=== PATIENT | male | born 1930 | race Caucasian/White ===

== ENCOUNTER 2018-09-02 15:01 | Observation (INO) | payer MEDICARE, OTHER ==
--- NOTE | 2018-09-02 15:36 | PDOC.FPRHP ---
- History of Present Illness Chief Complaint: Hyperglycemia History of Present Illness: Mr. Burnette is a 88 year old male that presents as a transfer from [place] for elevated blood sugar Yesterday he reports that he fell while trying to close his barn door and they went to the ER to be evaluated. While in the ER it was found that his sugar was elevated to 734. He has no history of DM and has never been told he has had elevated sugars before. Now that he thinks about it he has had polydipsia and polyuria for the past few months. He does not report any syncope, just fallx1 after losing his balance. He denies CP, SOB, dysuria, or recent infection. ED Course: CBC, CMP, B-hydroxybutyrate, UA 10 units of insulin, 2 L NS - Allergies/Adverse Reactions Allergies Allergy/AdvReac Type Severity Reaction Status Date / Time No Known Allergies Allergy Verified 09/02/18 16:54 - Home Medications Medication Instructions Recorded Confirmed Type Aspirin [Aspir-Low] 81 mg PO DAILY 01/20/17 09/02/18 History Atorvastatin Calcium [Lipitor] 80 mg PO HS 01/20/17 09/02/18 History Clopidogrel Bisulfate [Plavix] 75 mg PO DAILY 01/20/17 09/02/18 History Hydrochlorothiazide 25 mg PO DAILY 01/20/17 09/02/18 History Levothyroxine Sodium 100 mcg PO DAILY 01/20/17 09/02/18 History Lisinopril 40 mg PO HS 01/20/17 09/02/18 History Potassium Chloride 1 tab PO BID 01/20/17 09/02/18 History Tamsulosin HCl [Flomax] 0.4 mg PO HS 01/20/17 09/02/18 History Amlodipine [Norvasc] 5 mg PO QPM 09/02/18 09/02/18 History Melatonin/Pyridoxine [Melatonin 5 1 each PO HS PRN 09/02/18 09/02/18 History mg Tablet] Meloxicam 15 mg PO QAM-WM 09/02/18 09/02/18 History Niacin 100 mg PO BID 09/02/18 09/02/18 History Verapamil HCl [Verapamil SR] 240 mg PO DAILY 09/02/18 09/02/18 History amLODIPine Besylate [Norvasc] 2.5 mg PO QAM 09/02/18 09/02/18 History - History PMHx:TIA, HTN, HLD, hypothyroid, BPH, anxiety PSHx: Hernia repair FHx: NC Social: Winter green skoal during waking hours, no AD - Review of Systems General: denies: fever/chills, weight/appetite/sleep changes Eyes: reports: vision changes. denies: eye pain ENT: denies: nasal congestion, rhinorrhea Respiratory: denies: cough, congestion, shortness of breath Cardiovascular: denies: chest pain, palpitation, edema, orthopnea Gastrointestinal: denies: nausea, vomiting, diarrhea, constipation, abdominal pain Genitourinary: reports: polyuria. denies: incontinence, dysuria Skin: denies: rashes, lesions Musculoskeletal: denies: pain, tenderness Neurological: denies: numbness, syncope, weakness - Vital signs BP: 144/85 HR: 72 RR: 20 Tmax: 97.7 Pox: 94% on RA Wt: 76kg - Physical Exam Constitutional: NAD, awake, alert and oriented HEENT: normocephalic and atraumatic, grossly normal vision, grossly normal hearing Neck: trachea midline Chest: no-tender to palpation Heart: RRR, normal S1/S2, no murmurs/rubs/gallops, pulses present, no edema Lungs: CTAB, no respiratory distress, good air movement Abdomen: soft, non-tender, bowel sounds present Musculoskeletal: normal structure, normal tone, ROM grossly normal Neurological: no focal deficit, CN II-XII intact Skin: no rash/lesions Heme/Lymphatic: no unusual bruising or bleeding Psychiatric: normal mood and affect FMR H&P: Results - Labs Result Diagrams: 09/02/18 17:24 Lab results: Laboratory Tests 09/02/18 09/02/18 09/02/18 12:39 12:39 13:34 WBC 6.4 Hgb 14.8 Hct 44.6 Plt Count 195 PT INR APTT Sodium 135 L Potassium 4.9 Chloride 95 L Carbon Dioxide 26 Anion Gap 19 BUN 25 Creatinine 1.51 H Estimated GFR (MDRD) 44 Glucose 736 H* POC Glucose Calcium 10.1 Total Bilirubin 1.9 H AST 27 ALT 48 Alkaline Phosphatase 134 Creatine Kinase CK-MB (CK-2) 0.9 Troponin I 0.013 Urine pH Urine Glucose (UA) Urine Ketones B-Hydroxybutyrate 09/02/18 09/02/18 09/02/18 13:34 13:34 13:34 WBC Hgb Hct Plt Count PT 13.5 INR 1.0 APTT 29.6 Sodium Potassium Chloride Carbon Dioxide Anion Gap BUN Creatinine Estimated GFR (MDRD) Glucose POC Glucose Calcium Total Bilirubin AST ALT Alkaline Phosphatase Creatine Kinase 68 CK-MB (CK-2) Troponin I Urine pH Urine Glucose (UA) Urine Ketones B-Hydroxybutyrate 1.09 H 09/02/18 09/02/18 13:34 15:22 WBC Hgb Hct Plt Count PT INR APTT Sodium Potassium Chloride Carbon Dioxide Anion Gap BUN Creatinine Estimated GFR (MDRD) Glucose POC Glucose 421 H Calcium Total Bilirubin AST ALT Alkaline Phosphatase Creatine Kinase CK-MB (CK-2) Troponin I Urine pH 7.0 Urine Glucose (UA) 500 H Urine Ketones 15 H B-Hydroxybutyrate FMR H&P: A/P - Problem List (1) Hyperglycemia due to type 2 diabetes mellitus Current Visit: Yes Status: Acute Code(s): E11.65 - TYPE 2 DIABETES MELLITUS WITH HYPERGLYCEMIA (2) KERRY (acute kidney injury) Current Visit: Yes Status: Acute Code(s): N17.9 - ACUTE KIDNEY FAILURE, UNSPECIFIED (3) Fall Current Visit: Yes Status: Acute Code(s): W19.XXXA - UNSPECIFIED FALL, INITIAL ENCOUNTER (4) Hx-TIA (transient ischemic attack) Current Visit: Yes Status: Acute Code(s): Z86.73 - PRSNL HX OF TIA (TIA), AND CEREB INFRC W/O RESID DEFICITS (5) HLD (hyperlipidemia) Current Visit: Yes Status: Acute Code(s): E78.5 - HYPERLIPIDEMIA, UNSPECIFIED (6) BPH (benign prostatic hyperplasia) Current Visit: Yes Status: Acute Code(s): N40.0 - BENIGN PROSTATIC HYPERPLASIA WITHOUT LOWER URINRY TRACT SYMP (7) Anxiety Current Visit: Yes Status: Acute Code(s): F41.9 - ANXIETY DISORDER, UNSPECIFIED (8) Hypertension Current Visit: No Status: Chronic Code(s): I10 - ESSENTIAL (PRIMARY) HYPERTENSION Qualifiers: (9) Hypothyroid Current Visit: No Status: Chronic Code(s): E03.9 - HYPOTHYROIDISM, UNSPECIFIED Qualifiers: Hypothyroidism type: other Qualified Code(s): E03.8 - Other specified hypothyroidism - Plan Hyperglycemia - s/p 10 units insulin, give 10 more - repeat BMP now, AM - LR 120ml/hr, monitor fluid status - consider metformin in AM pending kidney function - hba1c pending KERRY - no history of CKD - fluid resuscitation - AM BMP S/p fall - no concern for syncope, fall precautions TIA - continue home meds HTN - continue home meds - vitals qshift HLD - continue home meds Hypothyroid - continue home meds - recent TSH at goal BPH - continue home meds Anxiety - continue home meds Disposition/LOS: Admit to medical floor, monitor glucose and BMP, DC tomorrow FMR H&P: Upper Level - Pertinent history 88 y/o M with PMHx HTN, HLD, hypothyroidism, prior CVA presents after a ground level fall onto his left side after losing his balance. He went to the ED in [place] to get evaluated and was found to hyperglycemic. He was transferred to the ED here after getting 10 U insulin and 2L NS boluses. He endorses polydipsia , polyuria, and nocturia. He denies any signs of infection and all other ROS were negative. - Pertinent findings PE: Gen - alert, oriented, NAD CV - RRR, 3/6 systolic murmur Resp - no use of accessory muscles of respiration, CTAB Abd - protuberant, soft, NTTP, normoactive BS, no fluid wave Ext - no edema Labs: Glucose 736->421, beta-hydroxybutyrate 1.09, Cr 1.51, GFR 44, Anion gap 14 , T. 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 - Plan Date/Time: 09/02/18 [id number] IJodee MD, PGY-2, have evaluated this patient and agree with findings/ plan as outlined by international marketing intern resident. Pertinent changes/additions are listed here. 1. Hyperglycemia with new onset DM2 Patient presented with initial glucose in the 700s that improved to the 400s with 10 U insulin and 2L NS. The patient has a mildly elevated beta- hydroxybutyrate and anion gap of 14, but does not appear to be in true DKA. He was very responsive to insulin. On reviewing old labs he has never had a random glucose > 200 and reports no h/o diabetes. -Obs on medical -Give another 10 U insulin and recheck glucose. Plan to improve glucose initially with insulin and then transition him to metformin if his kidneys improve vs another oral medication if his A1c is < 9. -Check A1c -Accuchecks, hypoglycemia protocol -Diabetic and heart healthy diet -Will recheck a BMP 2. KERRY Pt has baseline creatinine around 0.8 and it is currently 1.51. s/p 2 L NS -Will give LR @ 120 3. Chronic medical conditions - reviewed and agree with international marketing intern assessment and plan Code Status: Full Length of stay likely less than 48 hours Attending Addendum - Attending Addendum Date/Time: 09/02/18 4659 I personally evaluated the patient and discussed the management with Dr. Linton. I agree with the History, Examination, Assessment and Plan documented above with any addition or exceptions noted below. The patient presented to the [place] ER to get his abdomen checked out after falling on his left side yesterday while trying to shut a barn door. In the ER he was noted to have a blood glucose > 700 and mildly elevated beta hydroxybutyrate. Pt was given 10 units of insulin and IV fluids. In the [place] ER his gap has already closed with an AG 9. A1c is over 16. Pt with newly diagnosed diabetes. Will start basal insulin and sliding scale insulin. Begin iv fluids and trend labs.
[2018-09-02] MEDS ORDERED: Dextrose 5% in Water 1,000 ML IV PRN (16:50)
[2018-09-02] MEDS ORDERED: Dextrose 50% Abboject 50 ML SYRINGE SLOW IVP PRN (16:50)
[2018-09-02] MEDS ORDERED: HumaLOG 300 UNITS/3 ML VIAL SC SCH (16:50)
[2018-09-02] MEDS ORDERED: HumaLOG 300 UNITS/3 ML VIAL SC PRN ×2 (16:50)
[2018-09-02 17:06] VITALS: BMI 27.1
[2018-09-02 17:43] LABS: Hemoglobin A1c 16.5 % (4.0-6.0)
[2018-09-02 17:54] LABS: Anion Gap 13 mmol/L (10-20); BUN (Urea Nitrogen) 20 mg/dL (8.4-25.7); Calc. Creatinine Clearance 56 mL/min (70-130); Calcium 9.4 mg/dL (7.8-10.44); Carbon Dioxide 27 mmol/L (23-31); Chloride 102 mmol/L (98-107); Estimated GFR-MDRD 70; Glucose 392 mg/dL (83-110); Potassium 4.9 mmol/L (3.5-5.1); Sodium 137 mmol/L (136-145)
[2018-09-02] MEDS: Lactated Ringer's 1,000 ML IV SCH (18:09)
[2018-09-02] MEDS ORDERED: Melatonin 3 MG TAB PO PRN (19:03)
[2018-09-02] MEDS ORDERED: Amlodipine 5 MG TAB PO SCH (21:00)
[2018-09-02] MEDS ORDERED: Tamsulosin HCl 0.4 MG CAP PO SCH (21:00)
[2018-09-02] MEDS ORDERED: Insulin Glargine 10 UNITS in Pre-Filled Syringe 1 EACH SC SCH (21:00)
[2018-09-02] MEDS ORDERED: Lisinopril 20 MG TAB PO SCH (21:00)
[2018-09-02] MEDS ORDERED: Atorvastatin Calcium 40 MG TAB PO SCH (21:00)
[2018-09-03] MEDS: Lactated Ringer's 1,000 ML IV SCH (02:30)
--- NOTE | 2018-09-03 05:23 | PDOC.FM ---
- Subjective Subjective: Mr. Burnette has no complaints. Rested well last night. Diagnosis of diabetes is new to him. He has never been told he has abnormal BG in the past. - Objective MAR Reviewed: Yes Vital Signs & Weight: Vital Signs (12 hours) Temp Pulse Resp BP Pulse Ox 09/03/18 00:37 54 L 09/03/18 00:36 54 L 126/67 09/02/18 20:00 98.5 F 60 18 107/66 96 Weight Weight 78.653 kg I&O: 09/01/18 09/02/18 09/03/18 06:59 06:59 06:59 Intake Total 480 Output Total 450 Balance 30 Result Diagrams: 09/03/18 05:31 09/03/18 05:31 <Anna Hankins - Last Filed: 09/03/18 09:14> - Objective Vital Signs & Weight: Vital Signs (12 hours) Temp Pulse Resp BP BP Pulse Ox 09/03/18 09:44 56 L 116/63 09/03/18 07:27 98.0 F 56 L 16 116/63 93 L 09/03/18 04:00 97.8 F 61 20 138/72 96 09/03/18 00:37 54 L 09/03/18 00:36 54 L 126/67 Weight Weight 78.653 kg I&O: 09/02/18 09/03/18 09/04/18 06:59 06:59 06:59 Intake Total 2046 Output Total 450 Balance 1596 Result Diagrams: 09/03/18 05:31 09/03/18 05:31 <Aguila Michael - Last Filed: 09/03/18 11:15> Phys Exam - Physical Examination Constitutional: NAD Respiratory: clear to auscultation bilateral Cardiovascular: RRR 3/6 systolic aortic murmur Gastrointestinal: soft, non-tender, no distention Musculoskeletal: no edema Neurological: non-focal Psychiatric: normal affect Skin: normal turgor, cap refill <2 seconds <Anna Hankins - Last Filed: 09/03/18 09:14> Dx/Plan (1) Hyperglycemia due to type 2 diabetes mellitus Code(s): E11.65 - TYPE 2 DIABETES MELLITUS WITH HYPERGLYCEMIA Status: Acute (2) KERRY (acute kidney injury) Code(s): N17.9 - ACUTE KIDNEY FAILURE, UNSPECIFIED Status: Acute (3) HLD (hyperlipidemia) Code(s): E78.5 - HYPERLIPIDEMIA, UNSPECIFIED Status: Acute (4) BPH (benign prostatic hyperplasia) Code(s): N40.0 - BENIGN PROSTATIC HYPERPLASIA WITHOUT LOWER URINRY TRACT SYMP Status: Acute (5) GERD (gastroesophageal reflux disease) Code(s): K21.9 - GASTRO-ESOPHAGEAL REFLUX DISEASE WITHOUT ESOPHAGITIS Status: Chronic (6) Hypertension Code(s): I10 - ESSENTIAL (PRIMARY) HYPERTENSION Status: Chronic (7) Hypothyroid Code(s): E03.9 - HYPOTHYROIDISM, UNSPECIFIED Status: Chronic Qualifiers: Hypothyroidism type: other Qualified Code(s): E03.8 - Other specified hypothyroidism (8) Anxiety Code(s): F41.9 - ANXIETY DISORDER, UNSPECIFIED Status: Chronic - Plan Plan: 88 yo M with PMH TIA, HTN, hypothyroid, BPH presents with hyperglycemia and diagnosed with new onset diabetes. Hyperglycemia, new onset DM - BG now in 200s s/p 10 + 10 units insulin since admission - Anion gap normal - LR 120ml/hr, will d/c IVF today - has glargine 10 u qHS with SSI ordered - A1c 16.5 - diabetes education - will start metformin xr today KERRY, resolved - no history of CKD - Cr 1.5 on admission, this am 0.76 S/p fall - no concern for syncope, fall precautions Normocytic anemia - Hgb 12.6, no hx of anemia TIA - continue home clopidegrel, ASA HTN - continue home amlodipine, HCTZ, lisinopril, verapamil HLD - continue home lipitor Hypothyroid - continue home synthroid - recent TSH at goal BPH - continue home tamsulosin Anxiety - continue home xanax Dispo: possible d/c today or tomorrow <Anna Hankins - Last Filed: 09/03/18 09:14> Attending Addendum - Attending Addendum Date/Time: 09/03/18 1111 I personally evaluated the patient and discussed the management with Dr. Hankins. I agree with the History, Examination, Assessment and Plan documented above with any addition or exceptions noted below. Patient doing well today. Blood sugars much improved with basal insulin. We will work on diabetes education today and help with teaching him and his how to administer insulin (as he is willing to do) and check blood sugars. If we can arrange for the teaching and his blood sugars stay about where they are, he can be discharged this afternoon with close outpatient follow up with PCP which we will arrange for today. <Aguila Michael - Last Filed: 09/03/18 11:15>
[2018-09-03] MEDS ORDERED: Levothyroxine Sodium 100 MCG TAB PO SCH (06:00)
[2018-09-03 06:02] LABS: #Eosinphils 0.2 thou/uL (0.0-0.7); #Lymphocytes 2.2 thou/uL (1.20-3.40); #Monocytes 0.5 thou/uL (0.11-0.59); #Neutrophils 2.6 thou/uL (1.40-6.50); %Basophils 0.6 % (0.0-1.0); %Eosinophils 3.1 % (0.0-10.0); %Lymphocytes 40.4 % (21.0-51.0); %Monocytes 9.3 % (0.0-10.0); %Neutrophils 46.6 % (42.0-75.0); Hemoglobin 12.6 g/dL (14.0-18.0); Mean Corpuscular HGB CONC 33.1 g/dL (32.0-36.0); Mean Corpuscular Hemoglobin 30.8 pg (27.0-31.0); Mean Corpuscular Volume 93.1 fL (78.0-98.0); Mean Platelet Volume 8.8 fL (7.4-10.4); Platelet Count 161 thou/uL (130-400); RBC Distribution Width 11.7 % (11.5-14.5); Red Blood Cell (RBC) Count 4.09 mill/uL (4.70-6.10); White Blood Cell (WBC) Count 5.5 thou/uL (4.8-10.8)
[2018-09-03 06:18] LABS: Anion Gap 11 mmol/L (10-20); BUN (Urea Nitrogen) 14 mg/dL (8.4-25.7); Calc. Creatinine Clearance 75 mL/min (70-130); Calcium 8.6 mg/dL (7.8-10.44); Carbon Dioxide 22 mmol/L (23-31); Chloride 103 mmol/L (98-107); Estimated GFR-MDRD Greater than 90; Glucose 233 mg/dL (83-110); Potassium 3.4 mmol/L (3.5-5.1); Sodium 133 mmol/L (136-145)
[2018-09-03] MEDS ORDERED: Meloxicam 15 MG TAB PO SCH (08:00)
[2018-09-03] MEDS ORDERED: Potassium Chloride 10 MEQ TAB PO SCH (08:00)
[2018-09-03] MEDS ORDERED: Sodium Chloride 0.9% 10 ML ONE (08:17)
[2018-09-03] MEDS ORDERED: Clopidogrel Bisulfate 75 MG TAB PO SCH (09:00)
[2018-09-03] MEDS ORDERED: Aspirin 81 mg Enteric Coated Tablet PO SCH (09:00)
[2018-09-03] MEDS ORDERED: Hydrochlorothiazide 25 MG TAB PO SCH (09:00)
[2018-09-03] MEDS ORDERED: Amlodipine 5 MG TAB PO SCH (09:00)
[2018-09-03] MEDS ORDERED: metFORMIN XR 500 MG TAB PO SCH (09:30)
--- NOTE | 2018-09-03 13:15 | DIS-2 ---
DATE OF ADMISSION: 09/02/2018 DATE OF DISCHARGE: 09/03/2018 RESIDENT: Anna Hankins D.O. ADMITTING ATTENDING: Silvia Russell M.D. DISCHARGE ATTENDING: Aguila Michael M.D. CONSULTATIONS: None. PROCEDURES: None. PRIMARY DIAGNOSES: 1. Hyperglycemia. 2. New onset diabetes mellitus type 2. 3. Acute kidney injury. SECONDARY DIAGNOSES: 1. Normocytic anemia. 2. Transient ischemic attack. 3. Hypertension. 4. Hyperlipidemia. 5. Hypothyroid. 6. Benign prostatic hypertrophy. 7. Anxiety. DISCHARGE MEDICATIONS: 1. Tamsulosin 0.4 mg p.o. at bedtime. 2. Levothyroxine 100 mcg p.o. daily. 3. Hydrochlorothiazide 25 mg p.o. daily. 4. Clopidogrel 75 mg p.o. daily. 5. Potassium chloride 10 mEq 1 tab p.o. b.i.d. 6. Lisinopril 40 mg p.o. at bedtime. 7. Atorvastatin 80 mg p.o. at bedtime. 8. Aspirin 81 mg p.o. daily. 9. Meloxicam 15 mg p.o. q.a.m. with meals. 10. Amlodipine 2.5 mg p.o. q.a.m. 11. Amlodipine 5 mg p.o. q.p.m. 12. Melatonin 5 mg 1 tablet p.o. at bedtime p.r.n. 13. Insulin glargine 10 units subcu q.p.m. 14. Metformin XR 500 mg p.o. q.a.m. with meals number 30. 15. Diabetic pen needles. DISCONTINUED MEDICATIONS: Niacin 100 mg p.o. b.i.d. HISTORY OF PRESENT ILLNESS AND HOSPITAL COURSE: The patient presented as a transfer from [facility] f or elevated blood sugar as he had fallen while trying to close his barn door. At the ED, his blood g lucose was elevated to 734. Reported polydipsia and polyuria for the past few months. The patient w as admitted for observation, was given insulin and started on IV fluids. Hemoglobin A1c found to be at 16.5. The patient had an KERRY on presentation of creatinine 1.5, which normalized to 0.7 at time o f discharge. Other lab values to note are a direct bilirubin level of 0.6, which is stable compared to 1 year previously. The patient additionally has normocytic anemia of hemoglobin 12.6. The patien t's blood glucose levels continue to downtrend throughout hospitalization and were stable in the 200s at time of discharge. The patient was started on metformin XR as well as Lantus 10 units at night. Diabetic education was given and the patient and felt comfortable with discharge home with foll ow up in the outpatient setting. DISPOSITION: Stable. DISCHARGE INSTRUCTIONS: 1. Location: Home. 2. Diet: Diabetic. 3. Activity: As tolerated. 4. Followup: With Dr. Chaney, PCP in 3-7 days.
[2018-09-03 14:46] VITALS: BP 131/67; TEMP 98.3
[2018-09-04] MEDS ORDERED: metFORMIN XR 500 MG TAB PO SCH ×2 (08:00)
== END 2018-09-03 14:47 | disposition home or self-care (01) ==
LOC: ERS 15:01 → 2SW 15:35
PROVIDERS: ADMIT Family Medicine; ATTEND Family Medicine
DX: E11.65 Type 2 diabetes mellitus with hyperglycemia (principal); N17.9 Acute kidney failure, unspecified; I10 Essential (primary) hypertension; E78.5 Hyperlipidemia, unspecified; E03.9 Hypothyroidism, unspecified; N40.0 Benign prostatic hyperplasia without lower urinary tract symptoms; F41.9 Anxiety disorder, unspecified; K21.9 Gastro-esophageal reflux disease without esophagitis; Z79.02 Long term (current) use of antithrombotics/antiplatelets; Z79.899 Other long term (current) drug therapy; Z86.73 Personal history of transient ischemic attack (TIA), and cerebral infarction without residual deficits
CPT/HCPCS: 80048 ×2; 82248; 82962 ×2; 83036; 85025; 96360; 96361 ×2; 99285; G0378 ×2; 36415; 36416